=== PATIENT | female | born 1990 | race Caucasian/White ===

== ENCOUNTER 2017-05-04 22:17 | Emergency (ER) | payer MEDICARE ==
[~2017-05-04] VITALS: Ht 160 cm; Wt 115.7 kg
--- NOTE | ~2017-05-04 | CR21 ---
[facility] A Service of [facility] & [facility] RADIOLOGY TEXT RESULTS PATIENT: ABHILASH ELLIS LOCATION: SED : 88 UNIT #: [id number] AGE: [address]: Nury Magallanes SEX: F ORDER DR: [id number] [address] [address] [id number] E MR#: [id number] Acc #: [id number] NAME: ABHILASH ELLIS : 1990 SEX: F STUDY DATE/TIME: 05/04/2017 22:53 UNIT: SED ROOM: STUDY DESCRIPTION: CR Ankle Min 3 Views Rt Attending Physician: Nury Magallanes Pa-C Ordering Physician: Nury Magallanes Pa-C Primary Care Physician: Primary Care Physician No MEDICAL IMAGING REPORT This report is preliminary unless electronic signature is present. EXAM Right ankle 3 views ISTORY Ankle pain after fall 3 days ago. FINDINGS 3 views of the right ankle demonstrate no fracture. Satisfactory bone alignment. No joint space narrowing or abnormal sclerosis. Probable dystrophic calcification in the base of the great toe seen only on 1 view. Dictated by... Enrico Corona M.D. THIS IS AN ELECTRONICALLY VERIFIED REPORT Enrico Corona M.D. at 05/05/2017 4:38 AM CARITO/prudencio TD: 05/05/2017 00:39 JOB #: [id number] MEDICAL IMAGING REPORT Page 1 of 1
--- NOTE | ~2017-05-04 | CR229 ---
[facility] A Service of [facility] & [facility] / [facility] RADIOLOGY TEXT RESULTS PATIENT: ABHILASH ELLIS LOCATION: SED : [birth year] UNIT #: [id number] AGE: [address]: Nury Magallanes SEX: F ORDER DR: [id number] [address] [address] [id number] E MR#: [id number] Acc #: [id number] NAME: ABHILASH ELLIS : 1990 SEX: F STUDY DATE/TIME: 05/04/2017 22:53 UNIT: SED ROOM: STUDY DESCRIPTION: CR Shoulder Min 2 View Lt Attending Physician: Nury Magallanes Pa-C Ordering Physician: Nury Magallanes Pa-C Primary Care Physician: Primary Care Physician No MEDICAL IMAGING REPORT This report is preliminary unless electronic signature is present. EXAM Left shoulder 3 views HISTORY Shoulder pain after a fall 3 days ago. FINDINGS AP view with internal and external rotation of the shoulder girdle shows satisfactory relationship of the humeral head and glenoid fossa. The joint space is normal. There is no identifiable fracture or dislocation or bony destructive process about the shoulder girdle anatomy. The acromioclavicular joint is normal. There is no radiopaque foreign body in the region. IMPRESSION Normal shoulder. Dictated by... Enrico Corona M.D. THIS IS AN ELECTRONICALLY VERIFIED REPORT Enrico Corona M.D. at 05/05/2017 4:38 AM CARITO/prudencio TD: 05/05/2017 00:43 JOB #: [id number] MEDICAL IMAGING REPORT Page 1 of 1
--- NOTE | ~2017-05-04 | CR127 ---
[facility] A Service of [facility] & [facility] RADIOLOGY TEXT RESULTS PATIENT: ABHILASH ELLIS LOCATION: SED : 89 UNIT #: [id number] AGE: [address]: Nury Magallanes SEX: F ORDER DR: [id number] [address] [address] [id number] E MR#: [id number] Acc #: [id number] NAME: ABHILASH ELLIS : 1990 SEX: F STUDY DATE/TIME: 05/04/2017 22:53 UNIT: SED ROOM: STUDY DESCRIPTION: CR Foot Complete Min 3 View Rt Attending Physician: Nury Magallanes Pa-C Ordering Physician: Nury Magallanes Pa-C Primary Care Physician: Primary Care Physician No MEDICAL IMAGING REPORT This report is preliminary unless electronic signature is present. EXAM Right foot 3 views HISTORY Foot pain after fall 3 days ago. FINDINGS 3 views of the right foot demonstrate satisfactory bone alignment. Multilobulated, smoothly marginated soft tissue calcification along the lateral margin of the first MTP joint, likely dystrophic calcification. This could be secondary to old trauma. No acute fracture, joint space narrowing or dislocation. IMPRESSION No acute findings. Dictated by... Enrico Corona M.D. THIS IS AN ELECTRONICALLY VERIFIED REPORT Enrico Corona M.D. at 05/05/2017 4:38 AM CARITO/prudencio TD: 05/05/2017 00:41 JOB #: [id number] MEDICAL IMAGING REPORT Page 1 of 1
[~2017-05-04 22:17] MED LIST: BACTRIM DS TABL1 TA1 PO; BACTRIM DS TABL1 TA2; FAMOTIDINE PO; FLEXERIL PO; FLONASE ALLERG9.9 ML NS; FOLIC ACID1 MG; MUCINEX100 MG/BOX PO; NABUMETONE PO; NAPROXEN PO; NO MEDICATIONS; ORTHO EVRA1 PATCH.WK TOP; PAXIL PO; PERCOCET5/325 PO; PHENERGAN25 MG PO; PREDNISONE PO; STEROID; TRIAMCINOLONE A; TRIAMCINOLONE A TOP; VICODIN 5/1 TAB 5/50 PO; VOLTAREN75 MG PO; ZOFRAN ODT4 MG PO; ZOFRAN ODT4 MG/UDTAB PO; [UNRECOGNIZED DRUG - OTHER]
[2017-05-04] MEDS ORDERED: TRAMADOL HCL50 M2 PO (22:34)
== END 2017-05-05 00:45 | disposition home or self-care (01) ==
LOC: SED 22:17
DX: S96.912A Strain of unspecified muscle and tendon at ankle and foot level, left foot, initial encounter (principal); S46.912A Strain of unspecified muscle, fascia and tendon at shoulder and upper arm level, left arm, initial encounter; K21.9 Gastro-esophageal reflux disease without esophagitis; F31.9 Bipolar disorder, unspecified; F43.10 Post-traumatic stress disorder, unspecified; W18.2XXA Fall in (into) shower or empty bathtub, initial encounter; Y92.096 Garden or yard of other non-institutional residence as the place of occurrence of the external cause
CPT/HCPCS: 29540; 73030; 73610; 73630; 96372; 99283; J1885; J2360